=== PATIENT | male | born 1970 | race Caucasian/White ===

== ENCOUNTER 2024-09-14 23:10 | Emergency (ER) | payer OTHER ==
[~2024-09-14] VITALS: Ht 177.8 cm; Wt 74.5 kg
[2024-09-14 23:59] LABS: BASOPHILS ABSOLUTE AUTO 0.11 K/mm3 (0.00-0.23); BASOPHILS PERCENT AUTO 1 % (0-2); EOSINOPHILS ABSOLUTE AUTO 0.25 K/mm3 (0.00-0.68); EOSINOPHILS PERCENT AUTO 3 % (0-6); Hematocrit 39.1 % (37.0-53.0); Hemoglobin 12.6 g/dL (13.5-17.5); IMMATURE GRAN ABSOLUTE AUTO 0.05 K/mm3 (0.00-0.10); IMMATURE GRAN PERCENT AUTO 1 % (0-1); LYMPHOCYTES PERCENT AUTO 17 % (21-46); MONOCYTES PERCENT AUTO 7 % (4-13); Mean Corpuscular HGB 29.3 pg (26.0-34.0); Mean Corpuscular HGB Conc 32.2 g/dL (31.5-36.5); Mean Corpuscular Volume 91 fL (80-100); Mean Platelet Volume 9.1 fL (9.1-12.4); NEUTROPHILS ABSOLUTE AUTO 7.06 K/mm3 (1.96-9.15); NEUTROPHILS PERCENT AUTO 72 % (41-73); Platelet Count 288 K/mm3 (150-400); RDW Coefficient Variation 14.6 % (11.7-14.2); White Blood Cell Count 9.87 K/mm3 (4.00-11.30)
[2024-09-15 00:29] LABS: Albumin, Blood 4.1 g/dL (3.4-5.0); Albumin/Globulin Ratio 1.2 (0.8-1.8); Bilirubin, Total 0.8 mg/dL (0.1-1.0); Calcium, Blood 9.5 mg/dL (8.5-10.1); Creatinine, Blood 8.14 mg/dL (0.60-1.20); Globulin, Blood 3.3 g/dL (2.2-4.0); Potassium, Blood 4.4 mmol/L (3.5-5.5); Total Protein, Blood 7.4 g/dL (6.4-8.2)
[2024-09-15 01:21] LABS: Source, Urine Clean Catch
[2024-09-15 01:25] LABS: Bilirubin, Urine Neg (Neg); Blood, Urine 1+ (Neg); Glucose Qualitative, Urine 2+ (Neg); Ketones, Urine Neg (Neg); Leukocyte Esterase, Urine Neg (Neg); Nitrite, Urine Neg (Neg); Protein, Urine 3+ (Neg); Urobilinogen, Urine NORM (Normal)
[2024-09-15 01:27] LABS: Appearance, Urine Clear (Clear); Color, Urine Yellow (P-Yellow)
[2024-09-15 01:33] LABS: Bacteria Not Seen /hpf; Red Blood Cells, Urine 0-2 /hpf (0-2); Squamous Epithelial Cells Not Seen /hpf (Few); White Blood Cells, Urine Not Seen /hpf (0-5)
== END 2024-09-15 02:08 | disposition home or self-care (01) ==
LOC: ER 23:10
PROVIDERS: Student in an Organized Health Care Education/Training Program
DX: R42 Dizziness and giddiness (principal); H54.7 Unspecified visual loss
CPT/HCPCS: 80053; 81001; 85025; 93005; 93010; 99284-25

== ENCOUNTER 2025-03-29 11:49 | Emergency (ER) | payer OTHER ==
[~2025-03-29] VITALS: Ht 180.3 cm; Wt 77.0 kg
[2025-03-29] MEDS ORDERED: NS 1,000 ML IV SCH (12:05)
[2025-03-29] MEDS ORDERED: OxyCODONE 5 mg/Acetamin 325 mg TABLET PO ONE (12:30)
[2025-03-29] MEDS ORDERED: AMOCLA875 PO (12:35)
[2025-03-29] MEDS ORDERED: Percocet 5-3251 EACH PO (12:35)
== END 2025-03-29 13:11 | disposition home or self-care (01) ==
LOC: ER 11:49
DX: K61.1 Rectal abscess (principal); H54.7 Unspecified visual loss
CPT/HCPCS: 46040; 99283-25; A9270